=== PATIENT | male | born 1960 | race Caucasian/White ===

== ENCOUNTER 2023-07-14 18:49 | Emergency (ER) | payer OTHER ==
[~2023-07-14] VITALS: Ht 180.3 cm; Wt 86.2 kg
[~2023-07-14 18:49] MED LIST: NOR10 PO; SIMV-343 PO; ZOLP10TA2 PO
[2023-07-14 19:18] VITALS: BP_SYST 115; PULSE 79; RESP 22; TEMP 100; O2SAT 98
[2023-07-14] MEDS ORDERED: MAG HYDROX/AL HYDROX/SIMETH 30 ML, DICYCLOMINE HCL 20 MG, LIDOCAINE VISCOUS 2% 15ML (PO... PO ONE ×3 (20:00)
[2023-07-14 20:04] LABS: BASOPHILS % (AUTO) 0.4 % (0.0-2.0); EOSINOPHILS # (AUTO) 0.1 K/uL (0.0-0.4); HEMATOCRIT 46.1 % (36-54); HEMOGLOBIN 15.6 g/dL (14.0-18.0); LYMPHOCYTES # (AUTO) 0.3 K/uL (1.0-5.5); LYMPHOCYTES % (AUTO) 5.6 % (20.5-51.5); MEAN CORPUSCULAR HEMOGLOBIN 29 pg (27-31); MEAN CORPUSCULAR HGB CONC 34 % (32-36); MEAN CORPUSCULAR VOLUME 85 fL (79.0-98.0); MONOCYTES # (AUTO) 0.5 K/uL (0.0-1.0); MONOCYTES % (AUTO) 10.3 % (1.7-9.3); NEUTROPHILS # (AUTO) 4.4 K/uL (1.8-7.7); NEUTROPHILS % (AUTO) 82.7 % (40.0-70.0); PLATELET COUNT (AUTO) 223 K/uL (130-430); RED BLOOD CELL COUNT(AUTO) 5.41 MIL/uL (4.2-6.2); RED CELL DISTRIBUTION WIDTH 13.5 % (9.0-15.0); WHITE BLOOD COUNT (AUTO) 5.3 K/uL (4.8-10.8)
[2023-07-14] MEDS: FAMOTIDINE PF 20 MG/2 ML VIAL IVP ONE ×2 (20:04→20:14)
[2023-07-14] MEDS: PANTOPRAZOLE SODIUM 40 MG/VIAL (PROTONIX) IVP ONE ×2 (20:04→20:14)
[2023-07-14 20:18] LABS: ANION GAP 9 (5-15); CALCIUM 9.8 mg/dL (8.4-11.0); CARBON DIOXIDE 26 mmol/L (23-29); CHLORIDE 98 mmol/L (98-107); CREATININE 1.06 mg/dL (0.55-1.30); GFR AFRICAN AMERICAN 90 mL/min (>90); GFR NON AFRICAN-AMERICAN 75 mL/min (>90); GLUCOSE 116 mg/dL (74-106); POTASSIUM 3.7 mmol/L (3.5-5.1); SODIUM SERUM 133 mmol/L (136-145); UREA NITROGEN, BLOOD 11 mg/dL (8-21)
[2023-07-14 20:25] LABS: ALANINE AMINOTRANSFERASE 22 U/L (12-78); ALBUMIN 3.7 g/dL (3.4-4.8); ASPARTATE AMINOTRANSFERASE 11 U/L (10-37); BILIRUBIN,DIRECT 0.1 mg/dL (0.0-0.3); LIPASE 29 U/L (16-77); TOTAL BILIRUBIN 0.4 mg/dL (0.0-1.0); TOTAL PROTEIN, SERUM 7.4 g/dL (6.4-8.3)
[2023-07-14] MEDS ORDERED: fentaNYL CITRATE/PF 100 MCG/2 ML AMP IVP ONE (21:00)
[2023-07-14] MEDS ORDERED: NACL 0.9% 1,000 ML IV ONE (21:00)
[2023-07-14] MEDS ORDERED: ONDANSETRON HCL 4 MG/2 ML VIAL IVP ONE (21:00)
[2023-07-14] MEDS ORDERED: ACETAMINOPHEN 500 MG TABLET PO ONE (23:45)
[2023-07-14 23:54] LABS: BILIRUBIN,URINE NEGATIVE (NEGATIVE); CLARITY/URINE CLEAR (CLEAR); COLOR,URINE YELLOW (YELLOW); GLUCOSE,URINE NEGATIVE (NEGATIVE); KETONES,URINE TRACE (NEGATIVE); LEUKOCYTE ESTERASE ,URINE NEGATIVE (NEGATIVE); NITRITE, URINE NEGATIVE (NEGATIVE); PH,URINE 7.5 (5.0-8.0); PROTEIN URINE TRACE (NEGATIVE); UROBILINOGEN,URINE 0.2 (0.2-1.0)
[2023-07-15 00:11] LABS: BLOOD, URINE TRACE (NEGATIVE)
[2023-07-15 00:19] LABS: BACTERIA,URINE None Seen /HPF (None Seen)
[2023-07-15] MEDS ORDERED: cefTRIAXone 1 GM IVPB PREMIX 50 ML IV ONE (02:15)
[2023-07-15] MEDS ORDERED: CIPR500T5 PO (03:15)
[2023-07-15] MEDS ORDERED: NAPR-690 PO (03:15)
[2023-07-15 03:20] VITALS: BP_SYST 112; PULSE 62; RESP 20; TEMP 99.1; O2SAT 95
== END 2023-07-15 03:20 | disposition home or self-care (01) ==
LOC: SED 18:49
DX: R07.89 Other chest pain (principal); B34.9 Viral infection, unspecified; K21.9 Gastro-esophageal reflux disease without esophagitis; I10 Essential (primary) hypertension; Z79.899 Other long term (current) drug therapy
CPT/HCPCS: 99285; 70450; 71045; 96375; 96361; 80076; 80048; 81001; 83880; 83690; 85025; 87040; 84484; 36415; 93005; 76376 ×2; 96365; 72125; J2001; J3490; J2405; C9113; J3010; J7030; J0696; 81000; 81015